=== PATIENT | female | born 1940 | race Caucasian/White ===

== ENCOUNTER 2018-06-30 13:35 | Inpatient (IN) | payer OTHER ==
[~2018-06-30] VITALS: Ht 157.5 cm; Wt 65.8 kg
[~2018-06-30 13:35] MED LIST: ASPIR 8181 MG PO; CALCIUM 500 +1 EAC5 PO; EVISTA PO; I-CAPS WITH LU1 EACH PO; IBUPROFEN 600600 M1 PO; MOVE FREE ULTR1 EAC1 PO; PRILOSEC20 MG PO; TOPROL XL50 MG PO; UNICOMPLEX M TA1 TA1 PO
[2018-06-30 13:38] VITALS: BP 162/88
[2018-06-30 14:00] LABS: ABSOLUTE BASOPHILS 0.1 thou/uL (0.0-0.2); ABSOLUTE EOSINOPHILS 0.1 thou/uL (0.0-0.7); ABSOLUTE LYMPHOCYTES 1.6 thou/uL (0.8-5.3); ABSOLUTE MONOCYTES 0.6 thou/uL (0.0-1.2); ABSOLUTE NEUTROPHILS 6.1 thou/uL (1.6-8.1); BASOPHILS 0.6 %; EOSINOPHILS 1.6 %; HEMATOCRIT 38.6 % (37.0-47.0); HEMOGLOBIN 13.1 gm/dL (12.0-15.0); LYMPHOCYTES 18.8 %; MCH 30.3 pg (26.0-34.0); MCHC 34.1 g/dL (28.0-37.0); MCV 89.1 fL (80.0-100.0); MONOCYTES 7.5 %; MPV 7.5 fl. (7.2-11.1); NUCLEATED RBCS 0 /100WBC; PLATELET COUNT* 268 thou/uL (150-400); POLYS 71.5 %; RBC 4.33 mil/uL (4.20-5.00); WBC 8.5 thou/uL (4.0-11.0)
[2018-06-30 14:09] LABS: PROTIME 9.8 Seconds (9.20-11.50)
[2018-06-30 14:17] LABS: ALBUMIN 3.7 g/dL (3.4-5.0); CALCIUM 9.7 mg/dL (8.5-10.1); CREATININE 0.7 mg/dL (0.6-1.3); TOTAL BILIRUBIN 0.5 mg/dL (<0.1-1.0); TOTAL PROTEIN 7.1 g/dL (6.4-8.2)
[2018-06-30 14:19] LABS: POTASSIUM 2.6 mmol/L (3.5-5.1); TROPONIN-I LEVEL 1.61 ng/mL (<0.06)
[2018-06-30 15:30] VITALS: BP 163/90
[2018-06-30 17:15] VITALS: BP 148/93
--- NOTE | 2018-06-30 18:48 | NUR ---
I ASSUMED CARE OF THE PATIENT AN ADMISSION FROM THE COILER OPERATOR POST STEMI. SHE IS ALERT AND ORIENTED X4 AND IS ON BEDREST UNTIL 1930. SHE IS A RETIRED RN FROM HERE. PATIENT CHOSE TO NOT HAVE A STENT PLACED. SHE CONVERTED FROM A RUN OF SVT IN SURGERY WITH LOPRESSOR. BED IS IN THE LOW LOCKED POSITION AND CALL LIGHT IS IN REACH. HOURLY ROUNDING IS COMPLETED AND PATIENT NEEDS ARE MET. PAIN IS DENIED. PATIENT SHOULD DISCHARGE TOMORROW. SHE IS TOLERATING FOOD/DRINK WELL AND IS VOIDING IN A BEDPAN. WILL CONTINUE TO MONITOR.
[2018-06-30 19:30] VITALS: BP 135/86
[2018-06-30 21:00] VITALS: BP 115/74
[2018-06-30 23:00] VITALS: BP 94/57
[2018-07-01] VITALS (28 sets, daily range): BP systolic 65–118; BP diastolic 37–82
[2018-07-01 05:00] LABS: ABSOLUTE BASOPHILS 0.1 thou/uL (0.0-0.2); ABSOLUTE EOSINOPHILS 0.1 thou/uL (0.0-0.7); ABSOLUTE LYMPHOCYTES 1.2 thou/uL (0.8-5.3); ABSOLUTE MONOCYTES 0.6 thou/uL (0.0-1.2); ABSOLUTE NEUTROPHILS 3.8 thou/uL (1.6-8.1); EOSINOPHILS 1.8 %; HEMATOCRIT 36.3 % (37.0-47.0); HEMOGLOBIN 12.4 gm/dL (12.0-15.0); LYMPHOCYTES 21.5 %; MCH 30.6 pg (26.0-34.0); MCHC 34.1 g/dL (28.0-37.0); MCV 89.7 fL (80.0-100.0); MONOCYTES 9.8 %; MPV 7.7 fl. (7.2-11.1); NUCLEATED RBCS 0 /100WBC; PLATELET COUNT* 242 thou/uL (150-400); POLYS 65.9 %; RBC 4.05 mil/uL (4.20-5.00); RDW-CV 14.7 % (10.5-14.5); WBC 5.7 thou/uL (4.0-11.0)
[2018-07-01 05:20] LABS: CALCIUM 8.7 mg/dL (8.5-10.1); CREATININE 0.6 mg/dL (0.6-1.3)
[2018-07-01 05:42] LABS: POTASSIUM 4.9 mmol/L (3.5-5.1)
--- NOTE | 2018-07-01 07:24 | NUR ---
VITALS WNL. SEE MAR. SEE CHARTING. FALL PRECAUTIONS IN PLACE.
--- NOTE | 2018-07-01 08:18 | CON ---
[address] [address] CONSULTATION Name: EMIR CARTER Room: [address] IN .R.#: [id number] Admission: 06/30/18 Attend Phys: Ishaan Gibbons MD Discharge: Date of : 40 Report #: [id number] THIS REPORT FOR: //name// CC: Ishaan Ferrell DATE OF SERVICE: 06/30/2018 INDICATION: Chest pain. HISTORY OF PRESENT ILLNESS: This is a 78-year-old female with a history of hypertension, GERD, arthritis, presenting with chest pain. She had been outside sweeping snow for about 45 minutes. She came into the house to rest. She developed substernal chest pains, nonradiating. She denies any shortness of breath, diaphoresis, nausea or diarrhea. After about an hour, the pain persisted and she decided to come to the ER for an evaluation. The ECG reveals sinus rhythm with [address] elevation in leads V4 through V6. There is no history of fever, chills or orthopnea. PAST MEDICAL HISTORY: Hypertension, GERD, osteoarthritis, hypercholesterolemia. ALLERGIES: INCLUDE PENICILLIN. MEDICATIONS: Include metoprolol 50 mg daily, aspirin once a day and Evista. SOCIAL HISTORY: Denies tobacco use. FAMILY HISTORY: Negative for premature CAD. REVIEW OF SYSTEMS: A full 10-point review of systems performed. Only the pertinent positives and negatives are described in the HPI. PHYSICAL EXAMINATION: VITAL SIGNS: Blood pressure is 150/80, heart rate is 90 beats per minute. GENERAL APPEARANCE: This is a well-developed, well-nourished female in no acute distress. HEENT: Normocephalic, atraumatic. Oral mucosa moist. NECK: Supple. LUNGS: Clear to auscultation. CARDIAC: Regular rate and rhythm, S1, S2 positive. ABDOMEN: Soft, nontender. EXTREMITIES: No cyanosis, no edema. ECG reveals sinus rhythm, [address] elevation in V4-V6. LABORATORY VALUES: [place] [address] CONSULTATION Name: EMIR CARTER Room: [address]#: [id number] Admission: 06/30/18 Attend Phys: Ishaan Gibbons MD Discharge: Date of : 40 Report #: [id number] ASSESSMENT AND PLAN: 1. Acute coronary syndrome, rule out lateral wall myocardial infarction. The patient will be taken to the cardiac recyclable products sorter. Risks and benefits discussed with the patient. The patient understands and wishes to proceed. 2. Hypertension, continue metoprolol. 3. Hypercholesterolemia. Will be started on a statin medication. 4. Gastroesophageal reflux disease, continue with proton pump inhibitor. <ELECTRONICALLY SIGNED> By: Modesto Panda MD 07/01/18 0818 1521 [id number] jessica Berg
[2018-07-01] MEDS ORDERED: LOSARTAN-HCTZ1 EAC1 PO (08:51)
--- NOTE | 2018-07-01 11:21 | CARD ---
[address] [address] CARDIAC CATH REPORT Name: EMIR CARTER Room: [address] IN .R.#: [id number] Admission: 06/30/18 Attend Phys: Ishaan Gibbons MD Discharge: Date of : 40 Report #: [id number] THIS REPORT FOR: //name// APPROVED REPORT Study performed: 06/30/2018 14:58:33 Patient Details Patient Status: ED Room #: The patient is a 78 year-old female Event Personnel Modesto Panda Compounding Scaler, Mercedes Guerra RN Insurance Underwriter Sales, Alejandra Yuen RN Monitor, Jignesh Burt (R) Scrub Procedures Performed Art Access - R femoral artery* , Left Heart Catheterization Hemostasis w/ Mynx Indication STEMI (>0 to less than or equal to 6 hours), Chest pain, By the time she presented to the cardiac catheterization lab, her chest pain had resolved. Risk Factors Hypercholesterolemia, Hypertension Procedure Narrative The patient was brought emergently to the Cardiac Catheterization Laboratory and was prepped and draped in a sterile manner. The right femoral was infiltrated with 2% Lidocaine subcutaneous anesthesia. A 6fr Ultimum Sheath sheath was inserted into the right femoral artery. Coronary angiography was performed using coronary diagnostic catheters. The right coronary system was accessed and visualized with a 6Fr JR4 catheter. The left coronary system was accessed and visualized with a 6Fr JL4 catheter. The left ventricle was accessed and visualized with a 6Fr Pigtail catheter. The patient tolerated the procedure well and there were no complications associated with the procedure. There was no hematoma. Fluoro Time: 1.9 minutes Dose: DAP 47811 cGycm2 811.22 mGy Contrast Type and Amount: Visipaque 190 [place] [address] CARDIAC CATH REPORT Name: EMIR CARTER Room: [address] IN [facility]#: [id number] Admission: 06/30/18 Attend Phys: Ishaan Gibbons MD Discharge: Date of : 40 Report #: [id number] The patient's coronary anatomy is right dominant. Diagnostic Cath Left Main This is a moderate to large caliber vessel, patent with no flow-limiting lesions. LAD This is a moderate size caliber vessel, traverses the anterior wall in a tortuous pattern. The distal segment tapers down to a small-caliber vessel. Within the mid segment, there is a discrete borderline stenosis, 50%. Intracoronary nitroglycerin was given, without any change in the stenosis. Diagonal 1 This is a patent vessel, with no flow-limiting lesions. Diagonal 2 This is a patent vessel, with no flow-limiting lesions. Circumflex This is a moderate size caliber vessel, patent with no flow-limiting lesions. OM1 This is a moderate size caliber vessel, patent with no flow-limiting lesions. OM2 This is a moderate size caliber vessel, patent with no flow-limiting lesions. Right Coronary This is a dominant vessel, with mild diffuse disease proximally, 20%. R PDA This is a patent vessel, with no flow-limiting lesions. RPLV This is a patent vessel, with no flow-limiting lesions. Left Ventriculography The left ventricle is normal in size with decreased contractility. The left ventricular ejection fraction is estimated to be 35-40%. There are wall motion abnormalities in the mid to apical anterior and distal inferior segments. Hemodynamics The aortic pressure is 156/86 mmHg with a mean of 118 mmHg. The left ventricular pressure is 146/12 mmHg with a mean of mmHg. The left ventricular end diastolic pressure is 23 mmHg. Conclusion 1. Borderline stenosis, 50% in the mid LAD segment with TARIQ-3 blood flow. 2. There is mild disease in the RCA. 3. Moderate segmental LV dysfunction, suggestive for Takotsubo cardiomyopathy versus LAD occlusion [place] [address] CARDIAC CATH REPORT Name: EMIR CARTER Room: [address] IN .R.#: [id number] Admission: 06/30/18 Attend Phys: Ishaan Gibbons MD Discharge: Date of : 40 Report #: [id number] 4. Recommend medical therapy. If symptoms recur, consider staged angioplasty. <ELECTRONICALLY SIGNED> By: Modesto Panda MD 07/01/18 112 20 112Modesto Panda MD /INF
--- NOTE | 2018-07-01 11:45 | NUR ---
PT ADMITTED 3/3 WITH STEMI. SPOKE WITH PT. SHE LIVES AT HOME WITH HER , STATES HAS BEEN ACTIVE AND INDEP. SHE IS HOPING SHE CAN GO HOME TODAY. PT DENIES ANY DISCHARGE NEEDS. EXPLAINED ROLE OF CASE MGT, WILL CONTINUE TO FOLLOW.
--- NOTE | 2018-07-01 13:22 | 2DMMODE ---
[place] [address] 2 D/M-MODE ECHOCARDIOGRAM Name: EMIR CARTER Room: [address] ADM IN .R.#: [id number] Admission: 06/30/18 Attend Phys: Ishaan Gibbons, Discharge: Date of : 40 Date of Service: 07/01/18 1321 Report #: [id number] THIS REPORT FOR: //name// APPROVED REPORT Study performed: 07/01/2018 10:31:16 EXAM: Comprehensive 2D, Doppler, and color-flow Echocardiogram Patient Location: Bedside BSA: 1.69 HR: 82 bpm BP: 87/48 mmHg Other Information Study Quality: Fair Indications Chest Pain 2D Dimensions IVSd: 10.85 (7-11mm) LVOT Diam: 20.15 (18-24mm) LVDd: 41.77 mm PWd: 9.97 (7-11mm) Ascending Ao: 29.69 (22-36mm) LVDs: 27.60 (25-40mm) Aortic Root: 25.97 mm Volumes Left Atrial Volume (Systole) LA ESV Index: 24.50 mL/m2 Aortic Valve AoV Peak Jamie.: 1.25 m/s AO Peak Gr.: 6.25 mmHg LVOT Max P.30 mmHg AO Mean Gr.: 3.76 mmHg LVOT Mean P.23 mmHg LVOT Max V: 0.76 m/s AO V2 VTI: 24.55 cm LVOT Mean V: 0.52 m/s LYDIA (VTI): 2.14 cm2 LVOT V1 VTI: 16.47 cm Mitral Valve E/A Ratio: 1.13 MV Decel. Time: 207.19 ms MV E Max Jamie.: 0.75 m/s MV PHT: 60.09 ms MVA (PHT): 3.66 cm2 [place] [address] 2 D/M-MODE ECHOCARDIOGRAM Name: EMIR CARTER Room: [address] IN [facility]#: [id number] Admission: 06/30/18 Attend Phys: Ishaan Gibbons, Discharge: Date of : 40 Date of Service: 07/01/18 1321 Report #: [id number] TDI E/Lateral E': 6.82 E/Medial E': 15.00 Medial E' Jamie.: 0.05 m/s Lateral E' Jamie.: 0.11 m/s Pulmonary Valve PV Peak Jamie.: 0.71 m/s PV Peak Gr.: 2.01 mmHg Tricuspid Valve RAP Estimate: 5.00 mmHg TR Peak Gr.: 27.49 mmHg RVSP: 32.49 mmHg PA Pressure: 32.49 mmHg Left Ventricle The left ventricle is normal size. There is distal septal and anteroapical akinesis. There is normal left ventricular wall thickness. Left ventricular systolic function is moderately decreased. LVEF is 40%. The left ventricular diastolic function is normal. Right Ventricle The right ventricle is normal size. The right ventricular systolic function is normal. Atria The left atrium size is normal. The right atrium size is normal. Aortic Valve The aortic valve is normal in structure. Trace aortic regurgitation. There is no aortic valvular stenosis. Mitral Valve The mitral valve is normal in structure. Trace to mild mitral regurgitation. No evidence of mitral valve stenosis. Tricuspid Valve The tricuspid valve is normal in structure. Mild tricuspid regurgitation. Pulmonic Valve The pulmonary valve is normal in structure. There is no pulmonic valvular regurgitation. [place] [address] 2 D/M-MODE ECHOCARDIOGRAM Name: RAULNORMAEMIR Manny Room: [address] IN [facility]#: [id number] Admission: 06/30/18 Attend Phys: Ishaan Gibbons, Discharge: Date of : 40 Date of Service: 07/01/18 1321 Report #: [id number] The aortic root is normal in size. IVC is normal in size and collapses >50% with inspiration. Pericardium There is no pericardial effusion. <Conclusion> The left ventricle is normal size. There is normal left ventricular wall thickness. Left ventricular systolic function is moderately decreased. The right ventricle is normal size. The left atrium size is normal. The aortic valve is normal in structure. Trace aortic regurgitation. There is no aortic valvular stenosis. The mitral valve is normal in structure. Trace to mild mitral regurgitation. The tricuspid valve is normal in structure. Mild tricuspid regurgitation. IVC is normal in size and collapses >50% with inspiration. There is no pericardial effusion. There is distal septal and anteroapical akinesis. LVEF is 40%. <ELECTRONICALLY SIGNED> By: Yonathan Robles MD, FACC 07/01/18 1321 1321 132 Yonathan Robles MD, FACC /INF
--- NOTE | 2018-07-01 15:53 | EKG ---
[place] [address] ELECTROCARDIOGRAM REPORT Name: EMIR CARTER Room: [address] ADM IN M.R.#: [id number] Admission: 06/30/18 Attend Phys: Ishaan Gibbons MD Discharge: Date of : 40 Report #: [id number] THIS REPORT FOR: //name// [facility] ED Test Date: 2018-06-30 Test Time: 13:39:50 Pat Name: EMIR CARTER Department: Room: [facility] Gender: F Team Assembler: KENDY : 1940 Requested By: Estrada Bundy Order Number: [id number] MD: Yonathan Robles Measurements Intervals [place] Rate: 96 P: 23 PA: 156 QRS: -15 QRSD: 88 T: 33 QT: 361 QTc: 457 Interpretive Statements Sinus rhythm Inferior infarct, old possible Borderline ST elevation, anterolateral leads Compared to ECG 02/08/2015 10:18:08 ST (T wave) deviation now present Electronically Signed On 07-01-2018 15:53:24 DRY HOUSE WORKER by Yonathna Robles [email or web address] <ELECTRONICALLY SIGNED> By: Yonathan Robles MD, [facility] 07/01/18 1553 1339 1339 Yonathan Robles MD, [facility] /EPI
--- NOTE | 2018-07-01 15:53 | EKG ---
[place] [address] ELECTROCARDIOGRAM REPORT Name: EMIR CARTER Room: [address] ADM IN M.R.#: [id number] Admission: 06/30/18 Attend Phys: Ishaan Gibbons MD Discharge: Date of : 40 Report #: [id number] THIS REPORT FOR: //name// [facility] ED Test Date: 2018-06-30 Test Time: 14:39:26 Pat Name: EMIR CARTER Department: Room: [address] Gender: F Board Attendant: JEFF : 1940 Requested By: Estrada Bundy Order Number: [id number] Ulises MD: Yonathan Robles Measurements Intervals [place] Rate: 85 P: 55 HI: 175 QRS: -15 QRSD: 96 T: 37 QT: 379 QTc: 451 Interpretive Statements Sinus rhythm Borderline left axis deviation Compared to ECG 02/08/2015 10:18:08 No significant changes Electronically Signed On 07-01-2018 15:53:37 CULLET CRUSHER by Yonathan Robles [email or web address] <ELECTRONICALLY SIGNED> By: Yonathan Robles MD, [facility] 07/01/18 1553 1439 1439 Yonathan Robles MD, FACC /EPI
--- NOTE | 2018-07-01 16:05 | EKG ---
[place] [address] ELECTROCARDIOGRAM REPORT Name: EMIR CARTER Room: [address] ADM IN M.R.#: [id number] Admission: 06/30/18 Attend Phys: Ishaan Gibbons MD Discharge: Date of : 40 Report #: [id number] THIS REPORT FOR: //name// [facility] Test Date: 2018-06-30 Test Time: 16:49:22 Pat Name: EMIR CARTER Department: Room: [facility] Gender: F Legal Instruments Examiner: DEEPALI : 1940 Requested By: Modesto Panda Order Number: [id number] Ulises MD: Yonathan Robles Measurements Intervals [place] Rate: 85 P: -15 VT: 158 QRS: -20 QRSD: 100 T: 56 QT: 395 QTc: 470 Interpretive Statements Sinus rhythm Inferior infarct, old Lateral leads are also involved possible anterior scar Baseline wander in lead(s) V3 Compared to ECG 02/08/2015 10:18:08 Myocardial infarct finding now present Electronically Signed On 07-01-2018 16:05:36 HEAVY LINE TECHNICIAN by Yonathan Robles [email or web address] <ELECTRONICALLY SIGNED> By: Yonathan Robles MD, [facility] 07/01/18 1605 1649 1649 Yonathan Robles MD, [facility] /EPI
--- NOTE | 2018-07-01 18:05 | NUR ---
PER HOSPITALIST, PATIENT WAS TO DISCHARGE TODAY IF OKAY WITH CARDIOLOGY. PATIENT BEGAN TO HAVE SOFT/LOW BLOOD PRESSURS. ONETIME 250 ML BOLUS GIVEN BY CARDIOLOGY. MEDICATIONS ADJUSTED BY THEM. PATIENT DOWNGRADED TO TELE STATUS AND IS TO STAY THROUGHOUT THE NIGHT.
[2018-07-02] VITALS: BP 102/61
[2018-07-02 04:00] VITALS: BP 110/55
[2018-07-02 08:50] VITALS: BP 120/71
--- NOTE | 2018-07-02 08:50 | NUR ---
REC'D REPORT FROM NOC RN, ASSUMED CARE OF PT APPROX 0730. A&OX4, ABLE TO COMMUNICATE NEEDS TO STAFF. ASSESSMENT COMPLETE. VS OBTAINED. MEDICAL SERVICES ASSISTANT IN PLACE, P 102, O2 SATS: 97% ON RA. DISCHARGE PLANNED FOR TODAY. CALL LIGHT IN REACH. HOURLY ROUNDING FOR SAFETY AND PT NEEDS.
[2018-07-02 10:21] VITALS: BP 114/63
[2018-07-02 11:30] VITALS: BP 103/65
[2018-07-02] MEDS ORDERED: CARVEDILOL3.125 MG PO (12:49)
[2018-07-02] MEDS ORDERED: PLAVIX 75 MG TA75 M1 PO (12:51)
[2018-07-02] MEDS ORDERED: COZAAR 25 MG TA25 M2 PO (13:06)
== END 2018-07-02 13:50 | disposition home or self-care (01) | DRG 280 ==
LOC: M.CL 13:35 → M.ERS 13:35 → M.CL 15:30 → M.ICU 15:32 → M.TBA-ER 15:32 → M.ICU 17:16 → M.2W 07-01 19:34
PROVIDERS: Emergency Medicine; Internal Medicine Cardiovascular Disease; ADMIT Internal Medicine
PROC: 4A023N7 Measurement of Cardiac Sampling and Pressure, Left Heart, Percutaneous Approach (ICD-10-PCS; principal; 2018-06-30)
PROC: B215YZZ Fluoroscopy of Left Heart using Other Contrast (ICD-10-PCS; principal; 2018-06-30)
PROC: B211YZZ Fluoroscopy of Multiple Coronary Arteries using Other Contrast (ICD-10-PCS; principal; 2018-06-30)
DX: I21.3 ST elevation (STEMI) myocardial infarction of unspecified site (principal); I50.41 Acute combined systolic (congestive) and diastolic (congestive) heart failure; E87.1 Hypo-osmolality and hyponatremia; I24.9 Acute ischemic heart disease, unspecified; M19.90 Unspecified osteoarthritis, unspecified site; K21.9 Gastro-esophageal reflux disease without esophagitis; E78.00 Pure hypercholesterolemia, unspecified; E87.6 Hypokalemia; E78.5 Hyperlipidemia, unspecified; Z88.0 Allergy status to penicillin; Z82.49 Family history of ischemic heart disease and other diseases of the circulatory system; Z79.899 Other long term (current) drug therapy; I11.0 Hypertensive heart disease with heart failure